=== PATIENT | female | born 1945 | race Caucasian/White ===

== ENCOUNTER 2021-02-01 07:59 | Emergency (ER) | payer MEDICARE, OTHER, SELFPAY ==
[2021-02-01 08:00] VITALS: BP 161/55; PULSE 87; RESP 18; TEMP 36.6; O2SAT 97; BMI 34.2
--- NOTE | 2021-02-01 08:44 | EX.ED.DYSGE1 ---
HPI History of Present Illness Chief Complaint: Ear Problem Informant: patient Onset/Context/Timing Onset: Days (3) Context: Gradual Onset Timing: Continuous Quality: Aching Location: Left ear Worsened by: Palpation, and putting in her hearing aid Relieved by: Nothing Narrative Narrative: Patient presents with left ear pain that has been getting worse over the last 3 days. Patient describes the pain as aching. Patient states it is worse whenever she puts her hearing aid in her left ear. Patient states it is also worse whenever she touches her ear. Patient states it has been constant over the last 3 days. Patient denies any fevers or chills. Patient denies any discharge or drainage. [facility] Medical History Diabetes 1.5, managed as type 1 Hyperlipidemia Hypertension Pancreatitis Home Medications ciprofloxacin-hydrocortisone [Cipro HC] 3 drp EACH EAR BID 7 Days #10 ml 02/01/21 [Rx Last Taken Unknown] Allergy/AdvReac Type Severity Reaction Status Date / Time No Known Allergies Allergy Verified 02/01/21 08:33 Surgical History History of cholecystectomy Mitral valve replaced Social History Smoking Status: Never smoker ROS ROS ED Constitutional Constitutional ED: Denies chills or fever(s) Eyes Eyes: Denies blurry vision or change in vision ENT ENT ED: Reports ear pain left; Denies rhinorrhea or sore throat Cardiovascular Cardiovascular: Denies chest pain or palpitations Respiratory/Chest Respiratory/Chest: Denies cough or dyspnea Gastrointestinal Gastrointestinal: Denies nausea or vomiting Genitourinary Genitourinary ED: Denies dysuria or hematuria Musculoskeletal Musculoskeletal: Denies back pain or neck pain Integumentary Denies abscess or rash Neurologic Neurologic: Denies headache(s) or weakness Allergic/Immunologic Allergic/Immunologic ED: Denies mouth swelling or urticaria EXAM Physical Exam Const Vital Signs: 02/01/21 08:00 Temperature 97.8 F Temperature Source Temporal Pulse Rate 87 Respiratory Rate 18 Blood Pressure 161/55 H Blood Pressure Mean 90 Pulse Ox 97 Oxygen Delivery Method Room Air Positive well nourished, well developed and obese General Appearance ED: well developed Nutritional Appearance: obese HEENT Reports moist mucous membranes HEENT Narrative: There is erythema and edema of the left external auditory canal. The left tympanic membrane was unable to be visualized. There is pain with manipulation of the external ear. The right tympanic membrane and external auditory canals are clear. Eyes PERRL and EOMs intact bilaterally Neck supple and no JVD Neuro oriented x3, CN's II-XII intact bilaterally and no sensory deficits noted Sensorium / Orientation: alert Motor Exam: strength 5/5 throughout Psych mental status grossly normal MDM MDM MDM Narrative Medical decision making narrative: Patient was advised that this is an otitis externa. Patient was given a prescription for Cipro HC otic suspension. Patient was instructed to follow-up with her primary care physician in 3 to 5 days. Patient understood and was agreeable with the plan. All questions were answered. Discharge Plan Triage Chief Complaint: Ear Problem ED Provider: Kennedy Fang Dx/Rx/DC Orders Clinical Impression: Acute otitis externa of left ear Instructions: ED External Ear Infection (Adult) Prescriptions: New Cipro HC 0.2-1 % drops,suspension 3 drp EACH EAR BID 7 Days Qty: 10 RF: 0 Primary Care Provider: Emilee Del Rosario,Out of Referrals: Emilee Del Rosario,Out of [Primary Care Provider] - 3-5 Days Disposition Disposition: Home, Self Care
== END 2021-02-01 09:10 | disposition home or self-care (01) ==
LOC: ED 08:55
PROVIDERS: Emergency Provider Emergency Medicine
DX: H60.502 Unspecified acute noninfective otitis externa, left ear (principal); E66.9 Obesity, unspecified
CPT/HCPCS: 99282